=== PATIENT | female | born 1990 | race African-American/Black ===

== ENCOUNTER → 2024-02-20 | Outpatient (REF) | payer OTHER ==
[2024-02-20 18:19] LABS: HEMOGLOBIN A1c 5.1 % (4.0-6.0)
[2024-02-20 18:20] LABS: THYROID STIMULATING HORMONE 1.289 uIU/ML (0.55-4.78)
[2024-02-20 18:23] LABS: TOTAL 25(OH) VITAMIN D 16.9 NG/ML (20.0-100.0)
[2024-02-20 18:24] LABS: ALBUMIN 4.2 G/DL (3.2-5.2); ALKALINE PHOSPHATASE 125 U/L (46-116); ALT/SGPT 94 U/L (7.0-40); AST/SGOT 52 U/L (<34); BILIRUBIN,TOTAL 0.3 MG/DL (0.3-1.2); BLOOD UREA NITROGEN 11 MG/DL (9-23); CALCIUM LEVEL 9.7 MG/DL (8.5-10.1); CARBON DIOXIDE LEVEL 29 MMOL/L (20-31); CHLORIDE LEVEL 103 MMOL/L (98-107); CHOLESTEROL LEVEL 167 MG/DL (<200); CHOLESTEROL RISK RATIO 3.22 (<5); CREATININE FOR GFR 0.57 MG/DL (0.55-1.30); GLOMERULAR FILTRATION RATE > 60.0 (>60); GLUCOSE, FASTING 84 MG/DL (60-100); HDL CHOLESTEROL 51.8 MG/DL (>40); LDL CHOLESTEROL 85.2 MG/DL (<100); NON-HDL-C 115.2 MG/DL; POTASSIUM SERUM 4.9 MMOL/L (3.5-5.1); SODIUM LEVEL 139 MMOL/L (136-145); TOTAL PROTEIN 7.6 G/DL (5.7-8.2); TRIGLYCERIDES LEVEL 150 MG/DL (<150)
[2024-02-20 18:45] LABS: HIV 1&2 SCREEN NEGATIVE (NEGATIVE)
[2024-02-20 18:53] LABS: HEPATITIS C VIRUS ABY INDEX 0.02 INDEX (<0.8)
== END ==
LOC: M LAB REF 17:19
PROVIDERS: ATTEND Physician Assistant
DX: Z11.9 Encounter for screening for infectious and parasitic diseases, unspecified (principal); E66.01 Morbid (severe) obesity due to excess calories; E55.9 Vitamin D deficiency, unspecified

== ENCOUNTER → 2024-05-22 | Outpatient (CLI) | payer OTHER | LOC: M RAD 11:28 | PROVIDERS: ATTEND Physician Assistant | DX: M25.561 Pain in right knee (principal); M25.562 Pain in left knee ==

== ENCOUNTER → 2024-07-23 | Outpatient (CLI) | payer OTHER ==
[2024-07-23 18:42] LABS: HEMOGLOBIN A1c 5.3 % (4.0-6.0)
[2024-07-23 18:45] LABS: FREE T4 1.17 NG/DL (0.89-1.76); PROGESTERONE 0.42 NG/ML
[2024-07-23 18:46] LABS: FOLLICLE STIMULATING HORMONE 41.5 mIU/ML; LUTEINIZING HORMONE 22.3 mIU/ML
[2024-07-23 18:47] LABS: ESTRADIOL < 19.0 PG/ML; THYROID STIMULATING HORMONE 1.516 uIU/ML (0.55-4.78)
[2024-07-26 05:22] LABS: DEHYDROEPIANDROSTERONE SULFATE 167 mcg/dL (19-237)
[2024-07-31 03:28] LABS: 17 HYDROXY PROGESTERONE 11 ng/dL
== END ==
LOC: M PLALAB 14:51
PROVIDERS: ATTEND Nurse Practitioner Family
DX: N92.6 Irregular menstruation, unspecified (principal)

== ENCOUNTER → 2024-08-25 | Outpatient (REF) | payer OTHER ==
[2024-08-28 14:36] LABS: HPV APTIMA Not Detected (Not Detected)
== END ==
LOC: M SFHCWAGY 08:22
PROVIDERS: ATTEND Nurse Practitioner Family
DX: Z12.4 Encounter for screening for malignant neoplasm of cervix (principal); Z11.51 Encounter for screening for human papillomavirus (HPV); Z77.9 Other contact with and (suspected) exposures hazardous to health; R87.612 Low grade squamous intraepithelial lesion on cytologic smear of cervix (LGSIL)

== ENCOUNTER → 2024-08-25 | Outpatient (CLI) | payer OTHER | LOC: M WHC 15:28 | PROVIDERS: ATTEND Nurse Practitioner Family | DX: Z12.31 Encounter for screening mammogram for malignant neoplasm of breast (principal); R92.323 Mammographic fibroglandular density, bilateral breasts ==

== ENCOUNTER → 2024-10-16 | Outpatient (CLI) | payer OTHER ==
[2024-10-16 16:13] LABS: FOLLICLE STIMULATING HORMONE 23.9 mIU/ML; LUTEINIZING HORMONE 10.9 mIU/ML; PROLACTIN 2.92 NG/ML
[2024-10-16 16:16] LABS: PROGESTERONE 0.43 NG/ML
== END ==
LOC: M PLALAB 14:02
PROVIDERS: ATTEND Nurse Practitioner Family
DX: N92.6 Irregular menstruation, unspecified (principal)

== ENCOUNTER → 2024-12-08 | Outpatient (CLI) | payer OTHER | LOC: M WHC 09:01 | PROVIDERS: ATTEND Nurse Practitioner Family | DX: N92.6 Irregular menstruation, unspecified (principal); D25.9 Leiomyoma of uterus, unspecified ==

== ENCOUNTER → 2024-12-24 | Outpatient (REF) | payer OTHER | LOC: M PLALAB 11:52 | PROVIDERS: ATTEND Advanced Practice Midwife | DX: R87.612 Low grade squamous intraepithelial lesion on cytologic smear of cervix (LGSIL) (principal) ==

== ENCOUNTER → 2025-02-24 | Outpatient (CLI) | payer OTHER ==
[~2025-02-24] MED LIST: PROHANCE 279.3MG/ML 15ML VIAL ONE; PROHANCE 279.3MG/ML 5ML VIAL ONE
== END ==
LOC: M PLAIMG 12:57
PROVIDERS: ATTEND Nurse Practitioner Family
DX: Z91.89 Other specified personal risk factors, not elsewhere classified (principal); Z80.3 Family history of malignant neoplasm of breast
CPT/HCPCS: 77049; A9576

== ENCOUNTER → 2025-05-27 | Outpatient (REF) | payer OTHER ==
[2025-05-27 18:35] LABS: BASO # 0.1 10^3/uL (0.0-0.2); BASO % 0.9 % (0.0-1.0); EOS # 0.1 10^3/uL (0.0-0.5); EOS % 1.9 % (0.0-3.0); LYMPH # 1.8 10^3/uL (1.5-5.0); LYMPH % 25.9 % (24.0-44.0); MONO # 0.7 10^3/uL (0.0-0.8); MONO % 10.2 % (2.0-8.0); NEUTROPHILS # 4.1 10^3/uL (1.5-8.5); NEUTROPHILS % 61.0 % (36.0-66.0); PLATELET COUNT, AUTOMATED 396 10^3/uL (150-450)
[2025-05-27 18:36] LABS: ALT/SGPT 39 U/L (7.0-40); AST/SGOT 27 U/L (<34); CALCIUM LEVEL 9.7 MG/DL (8.5-10.1); CARBON DIOXIDE LEVEL 31 MMOL/L (20-31); CHLORIDE LEVEL 101 MMOL/L (98-107); CHOLESTEROL LEVEL 186 MG/DL (<200); CHOLESTEROL RISK RATIO 4.31 (<5); CREATININE FOR GFR 0.67 MG/DL (0.55-1.30); GLOMERULAR FILTRATION RATE > 90.0 (>60); LDL CHOLESTEROL 107.7 MG/DL (<100); NON-HDL-C 142.9 MG/DL; POTASSIUM SERUM 4.7 MMOL/L (3.5-5.1); SODIUM LEVEL 140 MMOL/L (136-145); TOTAL 25(OH) VITAMIN D 34.8 NG/ML (20.0-100.0); TRIGLYCERIDES LEVEL 176 MG/DL (<150); VITAMIN B12 LEVEL 487 PG/ML (211-911)
[2025-05-27 18:59] LABS: ESTIMATED AVERAGE GLUCOSE 114.0 MG/DL (60-110)
== END ==
LOC: M LAB REF 17:25
PROVIDERS: ATTEND Physician Assistant
DX: E66.9 Obesity, unspecified (principal); E55.9 Vitamin D deficiency, unspecified; L65.9 Nonscarring hair loss, unspecified

== ENCOUNTER → 2025-09-28 | Outpatient (CLI) | payer OTHER | LOC: M WHC 10:32 | PROVIDERS: ATTEND Nurse Practitioner Family | DX: Z12.31 Encounter for screening mammogram for malignant neoplasm of breast (principal); R92.323 Mammographic fibroglandular density, bilateral breasts ==

== ENCOUNTER → 2025-09-28 | Outpatient (REF) | payer OTHER ==
[2025-09-30 16:03] LABS: HPV APTIMA Not Detected (Not Detected)
== END ==
LOC: M SFHCWAGY 15:08
PROVIDERS: ATTEND Nurse Practitioner Family
DX: R87.612 Low grade squamous intraepithelial lesion on cytologic smear of cervix (LGSIL) (principal); Z11.51 Encounter for screening for human papillomavirus (HPV)